=== PATIENT | female | born 1955 | race African-American/Black ===

== ENCOUNTER 2020-05-28 13:54 | Observation (INO) | payer MEDICARE, SELFPAY ==
[2020-05-28] VITALS (14 sets, daily range): BP systolic 119–156; BP diastolic 78–116; PULSE 63–190; RESP 17–22; TEMP 36.3–37.1; O2SAT 97–100; BMI 44.9
--- NOTE | ~2020-05-28 | XR_ITS ---
EXAMINATION: XR chest 2V EXAM DATE: 05/28/2020 14:43 INDICATION: Midsternal chest pain radiating to left arm. TECHNIQUE: Frontal and lateral projections of the chest obtained and reviewed. There is no prior ronny dy for comparison. FINDINGS: Sternotomy wires are present without findings to suggest sternal dehiscence. The lungs are clear. There are no pleural effusions. The cardiomediastinal silhouette is within normal limits. T here is no pneumothorax suspected. There are cholecystectomy clips. IMPRESSION: No acute cardiopulmonary findings. Reviewed, dictated and finalized at location B. ETING OPERATIONS SPECIALIST
[2020-05-28] MEDS: dilTIAZem HCl INJ 25 MG/5 ML VIAL 10 MG IV PUSH (14:14)
[2020-05-28] MEDS: ASPIRIN 81 MG CHEWABLE TABLET 324 MG PO (14:15)
--- NOTE | 2020-05-28 14:15 | ED.GENADULT ---
HPI - General Adult General Chief complaint: Chest Pain Stated complaint: CHEST PRESSURE Time Seen by Provider: 05/28/20 14:02 Source: patient History of Present Illness HPI narrative: Patient is a 64 y/o female complaining of mid sternal chest pain starting 1 week ago. She describes her pain as being kicked and rates it as 7/10. There is no pain radiation. There is no known alleviating or exacerbating factor. She also has some palpitation. Related Data Home Medications Medication Instructions Recorded Confirmed alprazolam 0.25 mg PO BID PRN 05/28/20 apixaban [Eliquis] 5 mg PO BID 05/28/20 ascorbic acid (vitamin C) [Vitamin mg PO 05/28/20 C] dicyclomine 10 mg PO BID 05/28/20 ergocalciferol (vitamin D2) 10 mcg PO DAILY 05/28/20 [Vitamin D2] esomeprazole magnesium [Nexium] 40 mg PO DAILY 05/28/20 fluticasone propionate 1 spray INTRANASAL BID 05/28/20 olmesartan [Benicar] 40 mg PO DAILY 05/28/20 potassium chloride 10 meq PO DAILY 05/28/20 rosuvastatin [Crestor] 5 mg PO DAILY 05/28/20 sotalol 80 mg PO BID 05/28/20 torsemide 10 mg PO QAM 05/28/20 valacyclovir 1,000 mg PO DAILY 05/28/20 vitamin Z12-kcuzk acid jay SUBLINGUAL 05/28/20 Allergies Allergy/AdvReac Type Severity Reaction Status Date / Time potassium chloride Allergy Hallucinati Verified 05/28/20 14:08 ng tramadol Allergy Hypotension Verified 05/28/20 14:08 turmeric Allergy Unknown Verified 05/28/20 14:08 nitrofurantoin AdvReac Diarrhea Verified 05/28/20 14:08 Review of Systems Constitutional: Constitutional: Denies chills, Denies fever(s), Denies headache(s) and Denies weakness Eyes: Eyes: Denies blurry vision ENT: Denies headache(s) and Denies neck pain Cardiovascular: Cardiovascular: Reports chest pain, Reports rapid heart rate and Reports dyspnea Respiratory: Respiratory: Denies cough and Reports dyspnea Gastrointestinal: Gastrointestinal: Denies abdominal pain, Denies diarrhea, Denies nausea and Denies vomiting Genitourinary: Genitourinary: Denies hematuria and Denies dysuria Musculoskeletal: Musculoskeletal: Denies back pain and Denies neck pain Neurologic: Denies headache(s) and Denies weakness PMFSH Social History Social History Gender identity (if verbalized by the patient): Female Exam Const: General: no acute distress and well developed Orientation/consciousness: oriented to person, oriented to place, oriented to time and patient oriented x3 HENMT: Head: normocephalic Ears: external ears normal General nose exam: Normal external nose present Eyes: General: appearance normal, both eyes and all related structures Conjunctivae: conjunctivae normal Neck: Neck: normal visual inspection and full ROM Chest: Chest palpation & inspection: normal inspection of the chest and no tenderness Resp: Effort & Inspection: normal respiratory effort Auscultation: clear to auscultation bilaterally Cardio: Rate: tachycardic Rhythm: abnormal rhythm irregularly irregular GI: GI Palp: No abdominal tenderness and Yes Soft to palpation Skin: General skin exam: normal color and turgor normal Neuro: General: oriented to person, oriented to place, oriented to time and patient oriented x3 Cognition (Neuro): normal cognition Extrem: General: normal to inspection, full ROM and no pedal edema Psych: Appearance: grossly normal Mental Status: mental status grossly normal Affect: normal affect Course Consultations Consultation #1: Discussed with WANG Rosa, who agrees to admit. Date: 05/28/20 Time: 14:42 Vital Signs Vital signs: Vital Signs Temperature 37.1 C 05/28/20 13:53 Pulse Rate 190 H 05/28/20 13:53 Respiratory Rate 17 05/28/20 13:53 Blood Pressure 156/116 H 05/28/20 13:53 Pulse Oximetry 98 05/28/20 13:53 Temperature 37.1 C 05/28/20 13:53 Pulse Rate 77 05/28/20 16:19 Respiratory Rate 18 05/28/20 16:19 Blood Pressure 135/92 H
[2020-05-28 14:23] LABS: Basophils Percent Auto 0.4 % (0.2-1.2); Eosinophils Absolute Auto 0.3 K/mm3 (0-0.3); Eosinophils Percent Auto 2.8 % (0-4.4); Hematocrit 41.7 % (37.0-47.0); Hemoglobin 13.3 g/dL (12.0-15.0); Immature Granulocyte Absolute 0.04 K/mm3 (0.00-0.031); Immature Granulocyte Percent A 0.4 % (0-0.5); Lymphocytes Absolute Auto 1.34 K/mm3 (0.9-3.2); Lymphocytes Percent Auto 13.9 % (18.3-44.2); Mean Corpuscular HGB Conc 31.9 g/dl (32-36); Mean Corpuscular Hemoglobin 28.1 pg (26-34); Mean Platelet Volume 11.3 fl (7.4-10.4); Monocytes Absolute Auto 0.5 K/mm3 (0.1-0.6); Monocytes Percent Auto 4.8 % (2.6-8.5); Neutrophils Absolute Auto 7.5 K/mm3 (1.3-6.7); Neutrophils Percent Auto 77.7 % (45.5-73.1); Platelet Count Result 241 k/mm3 (150-375); Red Blood Count 4.74 M/mm3 (4.2-5.4); Red Cell Distribution Width 12.7 % (11.5-14.5); White Blood Count 9.6 K/mm3 (4.5-10.0)
--- NOTE | 2020-05-28 14:26 | ECG_ITS ---
Measurements Intervals [place] Rate: 174 P: KS: 0 QRS: 55 QRSD: 69 T: 92 QT: 248 QTc: 423 Interpretive Statements ATRIAL FIBRILLATION WITH RAPID VENTRICULAR RESPONSE CANNOT RULE OUT SEPTAL INFARCT, AGE INDETERMINATE BORDERLINE ST-T WAVE ABNORMALITY- INF/HIGH LAT LEADS ABNORMAL ECG Electronically Signed On 05-28-2020 16:29:53 GRAPHIC DESIGNER by Emeka Bee D.O.
--- NOTE | 2020-05-28 14:31 | ECG_ITS ---
Measurements Intervals [place] Rate: 85 P: 37 NE: 188 QRS: 35 QRSD: 81 T: 94 QT: 384 QTc: 457 Interpretive Statements SINUS RHYTHM FREQUENT ATRIAL PREMATURE COMPLEXES POSSIBLE LEFT ATRIAL ENLARGEMENT CANNOT RULE OUT SEPTAL INFARCT, AGE INDETERMINATE ST-T WAVE ABNORMALITY IN HIGH LATERAL LEADS- CONSIDER ISCHEMIA BASELINE ARTIFACT- I, II, III, AVF ABNORMAL ECG Electronically Signed On 05-28-2020 16:30:50 DRY ROOM ATTENDANT by Emeka Bee D.O.
[2020-05-28 14:32] LABS: INR 1.4; Partial Thromboplastin Time 34.3 SECONDS (22.3-36.8); Prothrombin Time 17.5 Seconds (11.1-14.7)
[2020-05-28 14:36] LABS: Anion Gap 9 mmol/L (8-16); Blood Urea Nitrogen 17 mg/dL (7-17); Calcium 9.3 mg/dL (8.4-10.2); Carbon Dioxide 29 mmol/L (22-30); Chloride 102 mmol/L (98-107); Estimated CRCL calculation 59 ml/min; Estimated Glomerular Filt Rate > 60; Glucose 178 mg/dL (65-105); Potassium 4.1 mmol/L (3.4-5.0); Sodium 140 mmol/L (137-145)
[2020-05-28 14:48] LABS: Troponin I < 0.012 ng/mL (0.000-0.034)
--- NOTE | 2020-05-28 16:24 | PC.NURSE ---
Salbador han requested for pt at this time.
--- NOTE | 2020-05-28 16:43 | PC.NURSE ---
[facility] Deandre to be reached at [phone].
[2020-05-28 17:28] LABS: Troponin I 0.023 ng/mL (0.000-0.034)
--- NOTE | 2020-05-28 17:30 | PM.IMHP ---
H&P: HPI History of Present Illness Date/Time: 05/28/20 17:30 Chief Complaint: Chest pressure. Narrative: This is a 64-year-old female with history of coronary artery disease status post 2 vessel CABG in 2007, paroxysmal atrial fibrillation on long-term anticoagulation, hypertension, hyperlipidemia, and GERD who presented to the emergency department earlier today via EMS from a local shopping [place] for evaluation of chest pressure. She was in her usual state of health while out shopping today and not long prior to arrival she developed sudden onset of midsternal chest pressure/squeezing radiating somewhat to the left arm associated with feelings of racing heart/fluttering and sweats. She goes on to say that over the past 1.5 weeks she has had frequent, self-limiting episodes of racing heart/fluttering associated with chest pressure and in fact she saw her fisher eel spear in [place], Dr. Emmanuel Cheatham just yesterday for evaluation of these symptoms. It sounds as though she had an EKG at that time was told everything looked okay and she also reports having a recent stress test within the last 1 month which was unremarkable. Today her symptoms did not resolve within a few minutes and thus she came in for evaluation. She was offered transfer to [place] where her fisher eel spear is and in fact where she lives, however she declined. At the time my evaluation she feels just fine and has no complaints and is noted to be back in a sinus rhythm after receiving a bolus of diltiazem in the emergency department. She states compliance with her sotalol and oral anticoagulant. She has no known history of thyroid disease or obstructive sleep apnea. With further questioning however she does not sleep well, is frequently tired, snores heavily, and has occasional PND. She denies excessive caffeine use. Review of Systems Review of Systems: Narrative: Twelve systems were reviewed with pertinent positives and negatives as per HPI. No fever chills. She denies recent cold and flu symptoms. No exposure to those positive for COVID-19. She has chronic lymphedema and her left leg where her veins were harvested for grafting during her CABG. She has not had any change in her lower extremity swelling. No calf pain or tenderness. She denies pleuritic pain. Except as documented, all other systems were reviewed and are negative. [facility] Past Medical History Medical History (Updated 05/28/20 @ 22:43 by Shelley Patel PA-C) Anxiety Chronic anticoagulation Coronary artery disease Status post 2 vessel bypass in 2007. Dyslipidemia Gastroesophageal reflux disease Hypertension Lymphedema of left leg Paroxysmal atrial fibrillation Surgical History Surgical History (Updated 05/28/20 @ 22:41 by Shelley Patel PA-C) History of section History of cholecystectomy History of coronary artery bypass graft x 2 (~2007) Family History Family History Mother Acute myocardial infarction at 22 from heart attack Grandparent Cerebrovascular accident Congestive heart failure Hypertension Son Chronic obstructive pulmonary disease Father Colon cancer Social History Social History (Updated 05/28/20 @ 22:42 by Shelley Patel PA-C) Social History: Surrogate decision maker: Lio Haro, iggy. Code status: Full code. Smoking status: Never smoker Alcohol intake: never Substance use: never Additional living arrangements comments: The patient lives alone in [place]. Additional occupation/education comments: On disability since her bypass in 2007. Gender identity (if verbalized by the patient): Female Spiritual care concerns: No Meds Home Medications and Allergies Home Medications Medication Instructions Recorded Confirmed Type alprazolam 0.25 mg PO BID PRN 05/28/20 05/28/20 History apixaban [Eliquis] 5 mg PO BID 05/28/20 05/28/20 History ascorbic acid (vitam
--- NOTE | 2020-05-28 17:44 | PC.NURSE ---
This patient, Mackenzie A Day, was admitted to IMU Room 212-01. Patient/family oriented to hospital policies and general routines including ID bracelet, bed and alarms, visiting hours, pain management, procedures, bathroom and other care routines, personal items, smoking policy, room service/diet, and visiting hours. Information on how to activate the Rapid Response Team has been discussed. Patient/Family are encouraged to report perceived risks to care and to ask questions if they do not understand what they are told or what they should do.
[2020-05-28 20:33] LABS: Troponin I 0.038 ng/mL (0.000-0.034)
[2020-05-29] VITALS (10 sets, daily range): BP systolic 95–154; BP diastolic 54–104; PULSE 63–77; RESP 18–20; TEMP 35.7–36.8; O2SAT 98–100
[2020-05-29] MEDS: SOTALOL HCL 80 MG TABLET PO ×2 (00:55→09:05)
[2020-05-29] MEDS: APIXABAN 5 MG TABLET PO ×2 (00:55→09:05)
[2020-05-29 04:50] LABS: Hemoglobin A1C 5.6 % (<5.7)
[2020-05-29 05:05] LABS: Alanine Aminotransferase 16 U/L (4-35); Albumin Level 3.3 g/dL (3.5-5.1); Alkaline Phosphatase 74 U/L (38-126); Anion Gap 1 mmol/L (8-16); Aspartate Amino Transferase 26 U/L (14-36); Bilirubin,Total 0.4 mg/dL (0.2-1.3); Blood Urea Nitrogen 18 mg/dL (7-17); Calcium 8.7 mg/dL (8.4-10.2); Carbon Dioxide 36 mmol/L (22-30); Chloride 105 mmol/L (98-107); Estimated CRCL calculation 72 ml/min; Estimated Glomerular Filt Rate > 60; Glucose 113 mg/dL (65-105); Potassium 3.8 mmol/L (3.4-5.0); Sodium 142 mmol/L (137-145)
[2020-05-29 05:37] LABS: Thyroid Stimulating Hormone Reflex 0.781 uIU/mL (0.465-4.68)
[2020-05-29] MEDS: PANTOPRAZOLE 40 MG TABLET PO (09:05)
[2020-05-29] MEDS: VITAMIN B COMPLEX CAPSULE 1 CAP PO (09:05)
[2020-05-29] MEDS: valACYclovir HCL 500 MG TABLET 1000 MG PO (09:05)
[2020-05-29] MEDS: CHOLECALCIFEROL 1,000 UNITS TABLET 5000 UNITS PO (09:05)
[2020-05-29] MEDS: THERAPEUTIC MULTIVITAMINS/MINERALS TAB (*BKC) 1 TABLET PO (09:05)
[2020-05-29] MEDS: DICYCLOMINE HCL 10 MG CAPSULE PO ×2 (09:05→12:10)
[2020-05-29] MEDS: FLUTICASONE PROPIONATE 0.05% NA SPR 16 GM BTL (*BKC) 1 SPRAY NASAL (09:06)
--- NOTE | 2020-05-29 10:36 | PM.DS ---
DS: Admitting Diagnosis Admitting Diagnosis Admitting Diagnosis: A. fib with RVR DS: Discharge Diagnosis Discharge Diagnosis (1) Atrial fibrillation with rapid ventricular response: Code(s): I48.91 - Unspecified atrial fibrillation Status: Acute Assessment and Plan: The patient presented to the emergency department on 05/28 via EMS with complaints of midsternal chest pressure associated with rapid heartbeat and fluttering. She was found to be in atrial fibrillation with RVR and returned back to sinus rhythm at roughly 1430 on 05/28 after receiving a bolus of diltiazem in the ED and has not had any recurrence of her chest pain. She has been maintained on sotalol for quite some time and may need some adjustments in her medications however she was just seen by her canvas goods fabricator on 05/24 and will likely need prompt follow-up with him. Continue sotalol and apixaban. Will attempt to contact Dr. Cheatham to discuss further Likely d/c today (2) Chest pain: Qualifiers: Chest pain type: unspecified Qualified Code(s): R07.9 - Chest pain, unspecified Code(s): R07.9 - Chest pain, unspecified Status: Acute Assessment and Plan: With mildly elevated troponin likely related to episode of a. fib with RVR. A stress test within the last 1 month was reportedly unremarkable and it is felt unnecessary to repeat a this time as I believe the chest pressure she is having is related to the atrial fibrillation/RVR. F/u with Cardiology (3) Hypertension: Code(s): I10 - Essential (primary) hypertension Status: Inactive Assessment and Plan: BP a bit soft today at 90s sys, but oeverall asymptomatic; elevated on arrival Will resume home meds as prescribed (4) Dyslipidemia: Code(s): E78.5 - Hyperlipidemia, unspecified Status: Inactive Assessment and Plan: continue statin (5) Chronic anticoagulation: Code(s): Z79.01 - intermediate teacher (current) use of anticoagulants Status: Inactive Assessment and Plan: No s/sx of bleeding Continue Eliquis (6) Suspected sleep apnea: Code(s): R29.818 - Other symptoms and signs involving the nervous system Status: Acute Assessment and Plan: Suspect she probably has sleep apnea and that may be playing a role in her dysrhythmia as well. Apnea link performed overnight and suggestive of sleep apnea. We discussed further work up as outpatient with outpatient sleep study. She will need prompt f/u with PCP Outpatient sleep study DS: Summary Hospital Course Reason for hospitalization: A. Fib with RVR Hospital Course: Date of arrival: 05/28/20 Date of discharge: 05/29/20 Patient is a 64-year-old female with history of coronary artery disease status post 2 vessel CABG in 2007, paroxysmal atrial fibrillation on long-term anticoagulation, hypertension, hyperlipidemia, and GERD who presented to the emergency department on 05/28 via EMS from a local shopping [place] for evaluation of chest pressure. While in the ED, EKG was performed and found patient to be in A. fib with RVR. CXR was unremarkable. She was given IV diltiazem in the ED and returned to NSR roughly 30 minutes after. Troponin was found to be mildly elevated and patient felt chest pressure when in a. fib with RVR, but resolved when she returned into NSR. Patient admitted under this setting and was to be observed overnight. Please see H&P for further details. Patient was admitted to the hospitalist service for further management/treatment. Patient was resumed on her home sotalol and Eliquis and remained in NSR during her stay. Her Observatory Director, Dr. Cheatham, office was contacted and a VM was left but no phone call was returned. Patient had just re
== END 2020-05-29 14:38 | disposition home or self-care (01) ==
LOC: ANHED 14:16 → ANHIMU 17:22
PROVIDERS: Physician Assistant; Admitting Provider Family Medicine; Emergency Provider Emergency Medicine; PCP Family Medicine; Visit Provider Physician Assistant
DX: R07.9 Chest pain, unspecified (principal); I48.91 Unspecified atrial fibrillation; R77.8 Other specified abnormalities of plasma proteins; I25.10 Atherosclerotic heart disease of native coronary artery without angina pectoris; E78.5 Hyperlipidemia, unspecified; I10 Essential (primary) hypertension; K21.9 Gastro-esophageal reflux disease without esophagitis; R29.818 Other symptoms and signs involving the nervous system; R06.83 Snoring; Z95.1 Presence of aortocoronary bypass graft; Z79.01 Long term (current) use of anticoagulants; I89.0 Lymphedema, not elsewhere classified
CPT/HCPCS: 36415; 71046; 80048; 80053; 83036; 84443; 84484; 85025; 85610; 85730; 93005; 96365; 96366; 99285; A9270; G0378